=== PATIENT | female | born 1985 | race Hispanic/Latino ===

== ENCOUNTER 2017-12-28 09:19 | Emergency (ER) | payer BC ==
[2017-12-28] MEDS ORDERED: ONDANSETRON 4 MG/2 ML VIAL ONE (10:51)
[2017-12-28] MEDS ORDERED: MORPHINE 4 MG/ML SYR ONE (10:54)
[2017-12-28 11:02] LABS: Absolute Lymphocytes (CBC) 1.8 K/uL (0.7-4.9); Absolute Monocytes 0.8 K/uL (0.1-1.3); Absolute Neutrophil 9.8 K/uL (1.8-8.0); Basophils % 0.6 % (0-1.3); Eosinophils % 1.3 % (0-4.4); Hematocrit 32.9 % (36.0-45.0); Lymphocytes % 14.2 % (15.3-44.8); MCH 22.2 pg (27.0-35.0); MCV 71.9 fL (80-100); MPV 9.8 fL (7.6-11.3); Monocytes % 6.1 % (3.3-12.3); RBC Red Blood Cell Count 4.57 M/uL (3.86-4.86)
[2017-12-28 11:07] LABS: Urine Appearance TURBID; Urine Blood 3+ (NEG); Urine Color RED; Urine Glucose NEGATIVE (NEG); Urine Protein 2+ (NEG); Urine Specific Gravity >=1.030 (1.005-1.030)
[2017-12-28 11:14] LABS: Urine Bilirubin NEGATIVE (NEG); Urine Microscopic Reflex ORDER UMIC
[2017-12-28 11:20] LABS: Urine Bacteria <20 /HPF (<20); Urine Culture Reflex Order REFLEXED; Urine RBC >50 /HPF (NONE SEEN)
[2017-12-28 11:26] LABS: ALT/SGPT 43 U/L (12-78); AST/SGOT 28 U/L (15-37); Albumin 3.5 g/dL (3.4-5.0); Alkaline Phosphatase 84 U/L (45-117); Amylase Level 42 U/L (25-115); BUN Blood Urea Nitrogen 13 mg/dL (7-18); Bicarbonate 25 mmol/L (21-32); Bilirubin Direct < 0.1 mg/dL (0-0.2); Bilirubin Total 0.4 mg/dL (0.2-1.0); Glucose Level 93 mg/dL (74-106); Lipase 134 U/L (73-393); Potassium 3.7 mmol/L (3.5-5.1); Protein, Total 8.1 g/dL (6.4-8.2); Sodium Level 136 mmol/L (136-145)
--- NOTE | 2017-12-28 11:33 | RAD REPORT ---
EXAM DESCRIPTION: US - Transvaginal Study Probe - 12/28/2017 11:23 am CLINICAL HISTORY: pelvic pain Pelvic pain. COMPARISON: No comparisons FINDINGS: Myometrium appears heterogenous diffusely. A fibroid is not detected The uterus measures 9 .6 x 6.4 x 6.1 cm. The endometrial stripe measures 12 mm, normal. Fallopian tube occlusion device is noted. The left ovary was not well identified despite prolonged so nographic attempts. Right ovary measures 2.6 x 2.3 cm with normal Doppler blood flow. Trace pelvic free fluid. IMPRESSION: Heterogenous appearance of the myometrium can be seen in adenomyosis.
--- NOTE | 2017-12-28 12:25 | ER ---
Nurse's Notes [facility] Name: Tracy Petersen Age: 32 yrs Sex: Female : 1985 Arrival Date: 12/28/2017 Time: 09:20 Bed 16 Private MD: None, None Diagnosis: Abnormal uterine and vaginal bleeding, unspecified;Urinary tract infection, site not specified Presentation: 12/28 09:41 Presenting complaint: Patient states: abdominal pain that started yesterday, has been em irregular for about 2 months, "less than normal flow," concerned that might be , has Essure BC coil placed 4 years ago. Transition of care: patient was not received from another setting of care. Onset of symptoms was December 27, 2017. Risk Assessment: Do you want to hurt yourself or someone else? Patient reports no desire to harm self or others. Initial Sepsis Screen: Does the patient meet any 2 criteria? No. Patient's initial sepsis screen is negative. Does the patient have a suspected source of infection? No. Patient's initial sepsis screen is negative. Care prior to arrival: None. 09:41 Method Of Arrival: Ambulatory em 09:42 Presenting complaint: Patient states: pt has had cramping and spotting since yesterday, iw has had irregular period for past 2 months, is unsure if , has Essure implant for control. Transition of care: patient was not received from another setting of care. Onset of symptoms was December 27, 2017. Risk Assessment: Do you want to hurt yourself or someone else? Patient reports no desire to harm self or others. Initial Sepsis Screen: Does the patient meet any 2 criteria? No. Patient's initial sepsis screen is negative. Does the patient have a suspected source of infection? No. Patient's initial sepsis screen is negative. Care prior to arrival: None. 09:42 Method Of Arrival: Ambulatory iw 09:42 Acuity: KUNAL 3 iw JOURNALISM INTERN: 09:46 LMP 12/28/2017 em Historical: - Allergies: 11:12 No Known Allergies; em - Home Meds: 09:45 None [Active]; em - PMHx: 09:45 None; em - PSHx: 09:45 ; em - Immunization history:: Adult Immunizations up to date. - Social history:: Smoking status: Patient/guardian denies using tobacco. - Ebola Screening: : No symptoms or risks identified at this time. Screenin:48 Abuse screen: Denies threats or abuse. Nutritional screening: No deficits noted. em Tuberculosis screening: No symptoms or risk factors identified. Fall Risk None identified. Assessment: 09:48 General: Appears in no apparent distress. uncomfortable, Behavior is calm, cooperative. em Pain: Complains of pain in groin Pain currently is 7 out of 10 on a pain scale. Neuro: Level of Consciousness is awake, alert, obeys commands, Oriented to person, place, time, situation. Cardiovascular: Capillary refill < 3 seconds Patient's skin is warm and dry. Respiratory: Airway is patent Respiratory effort is even, unlabored, Respiratory pattern is regular, symmetrical. GI: Abdomen is round non-distended. : Urine is aki blood, Reports vaginal bleeding that is light flow, Denies burning with urination. EENT: No signs and/or symptoms were reported regarding the EENT system. Derm: Skin is intact, Skin is pink, warm \\T\\ dry. Musculoskeletal: Range of motion: intact in all extremities. 10:00 Reassessment: Patient appears in no apparent distress at this time. I agree with above iw assessment by Jerrod Lazaro LVN. 10:45 Reassessment: Patient appears in no apparent distress at this time. Patient and/or em family updated on plan of care and expected duration. Pain level reassessed. Patient is alert, oriented x 3, equal unlabored respirations, skin warm/dry/pink. Patient states feeling better. Patient states symptoms have improved. 12:20 Reassessment: Patient appears in no apparent distress at this time. Patient and/or em family updated on plan of care and expected duration. Pain level reassessed. Patient is alert, oriented x 3, equal unlabored respirations, skin warm/dry/pink. ERIKA Johns at bedside performing pelvic exam. Vital Signs: 09:46 BP 146 / 90; Pulse 73; Resp 16; Temp 98.4(O); Pulse Ox 100% on R/A; Weight 68.04 kg; em Height 4 ft. 11 in. (149.86 cm); Pain 7/10; 10:45 BP 125 / 69; Pulse 65; Resp 18; Pulse Ox 99% on R/A; em 11:45 BP 119 / 73; Pulse 68; Resp 18; Pulse Ox 99% on R/A; em 09:46 Body Mass Index 30.30 (68.04 kg, 149.86 cm) em ED Course: 09:20 Patient arrived in ED. mr 09:21 None, None is Private Physician. mr 09:29 Jerrod Lazaro, COMPACT ASSEMBLER is Primary Nurse. em 09:44 Triage completed. iw 09:47 Arm band placed on. em 09:48 Patient has correct armband on for positive identification. Placed in gown. Bed in low em position. Call light in reach. 09:52 Andreas Almaguer PA is PHCP. jm 09:52 Andrez Rodriguez MD is Attending Physician. jmm 10:34 Radiology exam delayed due to lab results not completed at this time. test aa4 not completed at this time. 10:54 Patient taken to ultrasound. via wheelchair. aa4 10:54 Initial lab(s) drawn, by nh, sent to lab. Inserted saline lock: 20 gauge in left iw antecubital area, using aseptic technique. Blood collected. 11:19 Transvaginal Study Probe In Process Unspecified. EDMS 12:18 Assist provider with pelvic exam: Set up pelvic tray. Performed by Andreas JAMES em Specimens sent to lab. Patient tolerated well. chaperoned by Supriya safety relief valve technician. 12:24 Shirlene Willams MD is Referral Physician. [facility] 12:24 Leonides Alva MD is Referral Physician. [facility] 12:25 Assist provider with pelvic exam: Set up pelvic tray. Performed by Andreas JAMES mh5 Patient tolerated well. 12:46 IV discontinued, intact, bleeding controlled, No redness/swelling at site. Pressure em dressing applied. Administered Medications: 11:02 Drug: morphine 2 mg Route: IVP; Site: left antecubital; iw 12:38 Follow up: Response: No adverse reaction em 11:02 Drug: Zofran 4 mg Route: IVP; Site: left antecubital; iw 12:38 Follow up: Response: No adverse reaction; Nausea is decreased em Outcome: 12:24 Discharge ordered by MD. jmm 12:46 Discharged to home ambulatory. em 12:46 Condition: good 12:46 Discharge instructions given to patient. 12:46 Instructed on discharge instructions, follow up and referral plans. no drinking with medication, no driving heavy equipment, medication usage, Demonstrated understanding of instructions, follow-up care, medications, Prescriptions given X 2. 12:47 Patient left the ED. em Signatures: Dispatcher [employer] Andreas Rojo PA PA jmm Rivera, Maria mr Tejas, Jerrod, COMPACT ASSEMBLER COMPACT ASSEMBLER Aracelis Hernandez RN RN iw Frazier, Amanda [facility] Vivian Nichols [facility]
--- NOTE | 2017-12-28 12:25 | EDPHYS ---
Physician Documentation [facility] Name: Tracy Petersen Age: 32 yrs Sex: Female : 1985 Arrival Date: 12/28/2017 Time: 09:20 Bed 16 Private MD: None, None ED Physician Andrez Rodriguez HPI: 12/28 10:31 This 32 yrs old Female presents to ER via Ambulatory with complaints of jmm Vaginal Bleeding, Abdominal Pain. 10:31 The patient presents with pelvic pain. jmm 10:36 Onset: The symptoms/episode began/occurred acutely, gradually, 2 day(s) ago. Modifying jmm factors: The symptoms are alleviated by nothing, the symptoms are aggravated by nothing. Associated signs and symptoms: Pertinent positives: nausea, Pertinent negatives: dysuria, fever, vomiting, diarrhea. Patient complains of 2 days of worsening pelvic pain with vaginal spotting. Patient states she received an essure sterilization 4 years ago. . 10:36 Patient states that she has had pelvic cramping for 2 months but worsening over the jmm past 2 days. . INVESTOR RELATIONS ASSOCIATE: 09:46 LMP 12/28/2017 em Historical: - Allergies: 11:12 No Known Allergies; em - Home Meds: 09:45 None [Active]; em - PMHx: 09:45 None; em - PSHx: 09:45 ; em - Immunization history:: Adult Immunizations up to date. - Social history:: Smoking status: Patient/guardian denies using tobacco. - Ebola Screening: : No symptoms or risks identified at this time. ROS: 10:36 Constitutional: Negative for fever, chills, and weight loss, Cardiovascular: Negative jmm for chest pain, palpitations, and edema, Respiratory: Negative for shortness of breath, cough, wheezing, and pleuritic chest pain. 10:36 Skin: Negative for injury, rash, and discoloration, Neuro: Negative for headache, weakness, numbness, tingling, and seizure, Psych: Negative for depression, anxiety, suicide ideation, homicidal ideation, and hallucinations. 10:36 Abdomen/GI: Positive for abdominal pain. 10:36 Back: Positive for radiated pain. 10:36 : Positive for pelvic pain, vaginal bleeding. 10:36 All other systems are negative. Exam: 10:36 Head/Face: atraumatic. Chest/axilla: Normal chest wall appearance and motion. jmm Nontender with no deformity. No lesions are appreciated. Cardiovascular: Regular rate and rhythm. No gallops, murmurs, or rubs. Full/Equal distal pulses. Respiratory: Lungs have equal breath sounds bilaterally, clear to auscultation. No rales, rhonchi or wheezes noted. No increased work of breathing, no retractions or nasal flaring. 10:36 Constitutional: The patient appears in no acute distress, alert, awake. 10:36 Abdomen/GI: Inspection: obese Bowel sounds: normal, Palpation: soft, mild abdominal tenderness, in the suprapubic area. 10:36 Back: ROM is normal. 10:36 Musculoskeletal/extremity: ROM: intact in all extremities. 10:36 Skin: Appearance: Color: normal in color. 10:36 Neuro: Orientation: is normal, Mentation: is normal, Memory: is normal, Gait: is steady. 10:36 Psych: Behavior/mood is pleasant, cooperative. 10:36 : Pelvic Exam: External exam: is normal, Speculum exam: mild bleeding, os that is jmm closed, bimanual exam reveals normal findings. Vital Signs: 09:46 BP 146 / 90; Pulse 73; Resp 16; Temp 98.4(O); Pulse Ox 100% on R/A; Weight 68.04 kg; em Height 4 ft. 11 in. (149.86 cm); Pain 7/10; 10:45 BP 125 / 69; Pulse 65; Resp 18; Pulse Ox 99% on R/A; em 11:45 BP 119 / 73; Pulse 68; Resp 18; Pulse Ox 99% on R/A; em 09:46 Body Mass Index 30.30 (68.04 kg, 149.86 cm) em MDM: 10:29 Patient medically screened. m 12:23 Data reviewed: vital signs, nurses notes, radiologic studies, ultrasound. Counseling: I nicolas had a detailed discussion with the patient and/or guardian regarding: the historical points, exam findings, and any diagnostic results supporting the discharge/admit diagnosis, the presence of at least one elevated blood pressure reading (>120/80) during this emergency department visit, lab results, radiology results, to return to the emergency department if symptoms worsen or persist or if there are any questions or concerns that arise at home. 12:23 ED course: Patient has no pain or guarding of the abdomen of PE. I do not currently jmm suspect appendicitis. Patient advised to follow up with INVESTOR RELATIONS ASSOCIATE for further evaluation. Patient's symptomatology appears more likely consistent with pelvic origin. . 12/28 10:29 Order name: Amylase, Serum; Complete Time: 11:32 [facility] 12/28 10:29 Order name: Basic Metabolic Panel; Complete Time: 11:32 [facility] 12/28 10:29 Order name: CBC with Diff; Complete Time: :32 [facility] 12/28 10:29 Order name: Creatinine for Radiology; Complete Time: 11:32 [facility] 12/28 10:29 Order name: Hepatic Function; Complete Time: :32 [facility] 12/28 10:29 Order name: Lipase; Complete Time: : [facility] 12/28 10:35 Order name: Transvaginal Study Probe; Complete Time: 11:43 [facility] 12/28 10:45 Order name: Urinalysis; Complete Time: :32 [facility] 12/28 11:20 Order name: Urine Microscopic Only; Complete Time: 11:32 [facility] 12/28 11:21 Order name: Urine Culture [facility] 12/28 10:29 Order name: IV Saline Lock; Complete Time: 11:10 [facility] 12/28 10:29 Order name: Labs collected and sent; Complete Time: 11:10 [facility] 12/28 10:29 Order name: Urine Dipstick-Ancillary (obtain specimen); Complete Time: 11:10 jm Administered Medications: 11:02 Drug: morphine 2 mg Route: IVP; Site: left antecubital; iw 12:38 Follow up: Response: No adverse reaction em 11:02 Drug: Zofran 4 mg Route: IVP; Site: left antecubital; iw 12:38 Follow up: Response: No adverse reaction; Nausea is decreased em Disposition: 16:35 Co-signature as Attending Physician, Andrez Rodriguez MD. rn Disposition: 12/28/17 12:24 Discharged to Home. Impression: Abnormal uterine and vaginal bleeding, unspecified, Urinary tract infection, site not specified. - Condition is Stable. - Discharge Instructions: Urinary Tract Infection, Uterine Bleeding, Dysfunctional. - Prescriptions for Cephalexin 500 mg Oral Capsule - take 1 capsule by ORAL route every 12 hours for 10 days; 20 capsule. Tylenol- Codeine #3 300-30 mg Oral Tablet - take 2 tablets by ORAL route every 6 hours As needed; 15 tablet. - Medication Reconciliation Form, Thank You Letter, Antibiotic Education, Prescription Opioid Use form. - Follow up: Shirlene Willams MD; When: 2 - 3 days; Reason: Continuance of care. Follow up: Leonides Alva MD; When: 2 - 3 days; Reason: Continuance of care. Signatures: Dispatcher [employer] [facility] Andreas Almaguer PA PA [facility] Jerrod Lazaro, PIPER HELPER PIPER HELPER em Aracelis Mathews, THOMAS RN iw Andrez Rodriguez MD MD review rn: (The following items were deleted from the chart) 10:35 10:31 Pelvis Complete+US.RAD.BRZ ordered. [facility] 10:39 10:31 Onset: The symptoms/episode began/occurred acutely, [facility] 11:05 10:30 UA MICROSCOPIC+U.LAB.BRZ ordered. [facility] 12:28 12:24 12/28/2017 12:24 Discharged to Home. Impression: Abnormal uterine and vaginal [facility] bleeding, unspecified. Condition is Stable. Forms are Medication Reconciliation Form, Thank You Letter, Antibiotic Education, Prescription Opioid Use. Follow up: Shirlene Willams; When: 2 - 3 days; Reason: Continuance of care. Follow up: Leonides Alva; When: 2 - 3 days; Reason: Continuance of care. [facility] 12:41 12:08 Wet Prep+BA.LAB.BRZ ordered. [facility] 12:43 12:08 GC (Gonorr/Clamydia) Probe+R.LAB.BRZ ordered. [facility] 12:47 12:28 12/28/2017 12:24 Discharged to Home. Impression: Abnormal uterine and vaginal em bleeding, unspecified; Urinary tract infection, site not specified. Condition is Stable. Discharge Instructions: Uterine Bleeding, Dysfunctional. Forms are Medication Reconciliation Form, Thank You Letter, Antibiotic Education, Prescription Opioid Use. Follow up: Shirlene Willams; When: 2 - 3 days; Reason: Continuance of care. Follow up: Leonides Alva; When: 2 - 3 days; Reason: Continuance of care. [facility]
== END 2017-12-28 12:47 | disposition home or self-care (01) ==
LOC: ER 09:19
DX: N39.0 Urinary tract infection, site not specified (principal)
CPT/HCPCS: 36415; 76830; 80048; 80076; 81003; 81015; 82150; 83690; 85025; 87086; 87088; 96374; 96375; 99284; J2405